=== PATIENT | male | born 1985 | race Caucasian/White ===

== ENCOUNTER 2021-10-23 21:44 | Emergency (ER) | payer BC, OTHER ==
[2021-10-23 23:25] VITALS: BP 124/93; PULSE 87; RESP 19; TEMP 99.4
[2021-10-24] MEDS ORDERED: HYDROmorphone 1 MG/ML 1 ML SYRINGE IM STA (01:05)
[2021-10-24] MEDS ORDERED: ONDANSETRON ODT 4 MG TAB PO STA (01:05)
[2021-10-24] MEDS ORDERED: DEXAMETHASONE SOD PHOSPHATE 10 MG/ML 1 ML VIAL IM STA (01:05)
--- NOTE | 2021-10-24 01:10 | ED ---
General Adult HPI - General Chief complaint: Dental/Oral Stated complaint: Tooth Infection, Dental Pain Time Seen by Provider: 10/24/21 00:43 Source: patient, RN notes reviewed Mode of arrival: ambulatory - History of Present Illness Initial comments: 36-year-old male presents to emergency department for evaluation of swelling to the left lower jaw. Patient states he has known dental abscess and was prescribed an antibiotic by his dentist. States he has taken 2 doses today but continues to have increased pain and swelling. Took Motrin prior to arrival with minimal improvement. States the dentist told and the swelling would need to decrease before they were able to proceed with care. Patient denies fever, chills, trismus, or difficulty swallowing. - Related Data Allergies Allergy/AdvReac Type Severity Reaction Status Date / Time Penicillins Allergy Unknown Verified 10/23/21 23:25 Childhood Review of Systems ROS Statement: Those systems with pertinent positive or pertinent negative responses have been documented in the HPI. ROS Other: All systems not noted in ROS Statement are negative. Past Medical History Past Medical History: No Reported History History of Any Multi-Drug Resistant Organisms: None Reported Past Surgical History: No Surgical Hx Reported Past Psychological History: No Psychological Hx Reported Smoking Status: Never smoker Past Alcohol Use History: None Reported Past Drug Use History: None Reported General Exam Limitations: no limitations (Well-developed, well-nourished male in no acute distress. Initial temperature 99.4, pulse 87, respirations 19, blood pressure 124/93, pulse ox 98% on room air.) General appearance: alert, in no apparent distress Head exam: Present: atraumatic, normocephalic Eye exam: Present: normal appearance. Absent: scleral icterus, conjunctival injection Expanded Mouth exam: Present: normal external inspection, tongue normal. Absent: trismus, tongue elevation Teeth exam: Present: dental caries, fractured tooth #, dental tenderness # (21- 22), other (mild swelling left of the midline along mandible; does not extend to submandibular space. Mild tenderness upon palpation of the left mandible; remains soft ) Throat exam: normal inspection. negative: tonsillar erythema, tonsillomegaly, tonsillar exudate Neck exam: Present: normal inspection, full ROM. Absent: tenderness, meningismus, lymphadenopathy Respiratory exam: Present: normal lung sounds bilaterally. Absent: respiratory distress, wheezes, rales, rhonchi, stridor Cardiovascular Exam: Present: regular rate, normal rhythm, normal heart sounds. Absent: systolic murmur, diastolic murmur, rubs, gallop, clicks GI/Abdominal exam: Present: soft, normal bowel sounds. Absent: distended, tenderness, guarding, rebound, rigid Neurological exam: Present: alert, oriented X3, CN II-XII intact Psychiatric exam: Present: normal affect, normal mood Skin exam: Present: warm, dry, intact, normal color. Absent: rash Course Vital Signs 10/23/21 23:21 Temperature 99.4 F Pulse Rate 87 Respiratory 19 Rate Blood Pressure 124/93 O2 Sat by Pulse 98 Oximetry Medical Decision Making - Medical Decision Making 36-year-old male with known dental caries and on oral antibiotic for dental abscess presents to the emergency department for evaluation of worsening pain and swelling along the left side of the mandible. No trismus. Site is soft and non-localized. Given a dose of pain medication and steroid while present in the emergency department with improvement in discomfort. Encouraged to continue taking his antibiotic as prescribed. He is scheduled to follow up with his dentist. Strict return parameters were discussed. Patient verbalizes understanding and agrees with this plan. Attending: Nabeel. Disposition Clinical Impression: Dental abscess Disposition: HOME SELF-CARE Condition: Stable Instructions (If sedation given, give patient instructions): Dental Abscess (ED) Additional Instructions: Continue taking your antibiotic as prescribed. You were given a shot of steroid to help reduce swelling. Continue alternating Tylenol and Motrin as needed for pain. Follow Up with your dentist as scheduled. Return to the emergency department with any new, worsening, or concerning symptoms. Is patient prescribed a controlled substance at d/c from ED?: No Referrals: None,Stated [Primary Care Provider] - 1-2 days Time of Disposition: 01:10
== END 2021-10-24 02:16 | disposition home or self-care (01) ==
LOC: EC 21:44
DX: K08.89 Other specified disorders of teeth and supporting structures (principal); K04.7 Periapical abscess without sinus; Z88.0 Allergy status to penicillin
CPT/HCPCS: 96372; 99283